=== PATIENT | female | born 1985 | race Caucasian/White ===

== ENCOUNTER 2016-08-24 17:09 | Emergency (ER) | payer OTHER ==
[~2016-08-24] VITALS: Wt 105.0 kg
--- NOTE | 2016-08-24 17:44 | ERD ---
ER Documentation Chief Complaint Date/Time DATE: 08/24/16 TIME: 17:30 Chief Complaint intermittent r. flank pain x8 mo HPI 31-year-old female who presents to the emergency department for right flank pain that is on and off for about 8 months. Her pain was described as sharp and nonradiating that is worse in movement. Took [id number] Advil yesterday and felt better. Denies headache, loss of consciousness, dizziness, blurry vision, changes in vision, photophobia, facial pain, ear pain, throat pain, difficulty swallowing, neck pain, shoulder pain, chest pain, cough, hemoptysis, abdominal pain, loss of appetite, nausea, vomiting, hematochezia, diarrhea, constipation, urinary symptoms, , the possibility of being , bladder and bowel incontinences, extremity weakness, extremity tenderness, numbness or tingling sensation, difficulty walking, recent travel, recent exposure to illness, recent antibiotic use in the last 3 months, fever, chills. Allergy: No known drug allergies. PMH: Denies. Family medical history: Denies family history of cardiac before the age of 50, cardiac disease, hypertension, stroke. AO LMP: "5 days ago." Medications: Mavy-ter-znpkcpy Advil. Surgery: 2. Tubal ligation. Primary Social History: Not working at this time. Denies smoking, use of alcohol, use of illegal drugs. Not exposed to secondhand smoking. ROS All systems reviewed and are negative except as per history of present illness. Allergies Allergies: Coded Allergies: No Known Allergies (Verified Allergy, Unknown, 08/24/16) PMhx/Soc Medical and Surgical Hx: pt denies Medical Hx, pt denies Surgical Hx Hx Alcohol Use: No Hx Substance Use: No Hx Tobacco Use: No Smoking Status: Never smoker Physical Exam Vitals Vital Signs Date Time Temp Pulse Resp B/P Pulse Ox O2 Delivery O2 Flow Rate FiO2 08/24/16 17:11 98.2 76 20 119/58 99 Physical Exam CONSTITUTIONAL: Well-appearing; well-nourished; in no apparent distress. HEAD: Normocephalic; atraumatic. EYES: Conjunctiva clear, sclera non-icteric, EOM intact. PERRL Ears: Hearing intact. EACs clear, TMs non-bulging, non-inflamed, translucent & mobile, ossicles normal appearance, No obstructions, no erythema, no discharges Nose: No obstructions. No polyps. No external lesions. Mucosa non-inflamed. No external lesions, septum and turbinates normal. No rhinorrhea. No discharges. Frontal sinus is non-tender to palpation. Maxillary sinus is non-tender to palpation. MOUTH: Moist mucous membranes, no lesion, no obstructions, no vesicles, no thrush, patent airway Throat: Uvula in midline. Right tonsil is +1 with no erythema, no exudate. Left tonsil is +1 with no erythema, no exudate. Tolerating secretions well. Good gag reflex. Patent airway. Neck: Supple, without lesions, bruits, or adenopathy. No mass. Thyroid non- enlarged and non-tender to palpation. CHEST: Symmetrical chest. Respirations even and not labored. No retractions noted. CARDIOVASCULAR: Normal S1, S2. RRR. No murmurs, gallops. RESPIRATORY: Normal chest excursion with respiration; breath sounds clear and equal bilaterally; no wheezes, rhonchi, or rales. Breathing even and unlabored. Speaking in clear, full, and complete sentences w/ ease. ABDOMEN: Normal bowel sounds normal. Soft, round, non-distended, non-guarding, no tenderness, no rebound, no organomegaly, no masses, no pulsating abdominal mass. No hernia. No peritoneal signs. : No CVA tenderness. BACK: Symmetrical shoulder. Spine is midline without deformity, tenderness. No evidence of trauma or deformity. PELVIS: Stable pelvis. No evidence of trauma or deformity. MUSCULOSKELETAL: Normal gait and station. No misalignment, asymmetry, crepitation, defects, tenderness, masses, effusions, decreased range of motion, instability, atrophy or abnormal strength or tone in the head, neck, spine, ribs , pelvis or extremities except right lower back paraspinal discomfort on range of motion (good and full) with mild tenderness on palpation.. No calf tenderness. NEUROVASCULAR: Distal pulses are present. Pedal pulse are present, equal, and normal. Capillary refills are < 2 seconds. NEUROLOGIC: Alert and oriented x4. Speaks full and clear sentences. Cranial Nerves II-XII normal. Sensation to pain, touch, and proprioception normal. Grossly unremarkable. No neurologic deficits. Romberg test is negative. PSYCHOLOGICAL: The patients mood and manner are appropriate. No hallucinations , delusions. Not SI. Not HI. Has the capacity to decide for self SKIN: Normal for age and ethnicity; warm; dry; good turgor; no apparent lesions or exudates. No rashes, hives, discoloration. Intact. Results 24 hrs Laboratory Tests Test 08/24/16 18:10 Urine Color YELLOW Urine Clarity HAZY Urine pH 6.0 Urine Specific [place] >=1.030 Urine Ketones NEGATIVE Urine Nitrite NEGATIVE Urine Bilirubin NEGATIVE Urine Urobilinogen 0.2 E.U./dL Urine Leukocyte Esterase NEGATIVE Urine Microscopic RBC 2-5/HPF Urine Microscopic WBC 0-2/HPF Urine Squamous Epithelial Cells MANY Urine Bacteria MANY Urine Hemoglobin 1+ Urine Glucose NEGATIVE% Urine Total Protein TRACE Current Medications Medications (Trade) Dose Ordered Sig/Judy Route PRN Reason Start Time Stop Time Status Last Admin Dose Admin Ibuprofen (Motrin) 800 mg ONCE ONCE PO 08/24/16 18:00 08/24/16 18:01 DC 08/24/16 18:02 Procedures/MDM Examination: Please see physical examination. Disease process, medical treatment was explained to the patient and family member. They verbalized understanding and agreed with the diagnostic tests, medical treatment, and follow-up care. POC urine : Negative. Urinalysis: Reviewed. Treatment: Motrin. Re-evaluation: Denies headache, dizziness, blurry vision, neck pain, shoulder pain, chest pain, back pain, abdominal pain. No nausea and vomiting. No episode of emesis here in the emergency department. There is no right upper/ right lower/epigastric/left upper/left lower abdominal tenderness and light and deep palpation. Negative on Rovsing's sign. Negative on Rahul sign. No peritoneal signs. Able to jump 10 times without developing abdominal pain. Good and full range of motion of neck and spine without limitation. No neurovascular deficits. No neurological deficits. Consultation: None. Differential diagnosis: Nephrolithiasis versus sciatica versus urinary tract infection versus musculoskeletal spasms Medical decision makin-year-old female who presents to the emergency department for right flank pain that is on and off for about 8 months. Her pain was described as sharp and nonradiating that is worse in movement. Took [id number] Advil yesterday and felt better. Patient's complaint, patient' s history about her complaint, my physical findings, diagnostic test results, my reevaluation are consistent with my final diagnosis of muscle spasms. Medications prescribed are the following: Motrin. Flexeril. Patient and family member are made aware of the side effects and adverse reactions of the medications prescribed. Instructed on when to seek emergent and medical attention in case allergic/anaphylactic reactions or severe side effects and or adverse reactions to medications. Patient and family member verbalized understanding. Patient instructed to: Instructed to follow-up with his PCP in 24-48 hours. Instructed to Call 911 for chest pain, shortness of breath. Advised to come back here in ED as soon as possible for severity of symptoms which includes but not limited to: any new symptoms; shortness of breath/difficulty of breathing; cardiovascular changes; severe gastrointestinal symptoms; signs and symptoms of bleeding and or infection; signs of compartment syndrome/neurovascular changes; neurological changes/deficits. Patient and family member verbalized understanding. Upon discharge, patient is alert and oriented x 4, speaks full and clear sentences, denies pain, has no neurological deficits, has no neurovascular deficits, difficulty of breathing. Breathing even and unlabored. Lung sounds are clear to auscultation. Not in distress. Appears comfortable. Ambulatory with steady gait. Appears satisfied with care provided here in ED. Departure Diagnosis: Primary Impression: Muscle spasm Additional Impression: Back pain Condition: Stable Additional Instructions: Patient instructed to: Instructed to follow-up with his PCP in 24-48 hours. Instructed to Call 911 for chest pain, shortness of breath. Advised to come back here in ED as soon as possible for severity of symptoms which includes but not limited to: any new symptoms; shortness of breath/difficulty of breathing; cardiovascular changes; severe gastrointestinal symptoms; signs and symptoms of bleeding and or infection; signs of compartment syndrome/neurovascular changes; neurological changes/deficits. Patient and family member verbalized understanding. NATIVIDAD JOLLEY Aug 24, 2016 17:44
[2016-08-24] MEDS ORDERED: IBUPROFEN 800 MG TAB PO ONE (18:00)
[2016-08-24 18:35] LABS: ADD UMIC YES; URINE BILIRUBIN (Dip) NEGATIVE (NEGATIVE); URINE BLOOD (Dip) 1+ (NEGATIVE); URINE COLOR YELLOW (YELLOW); URINE GLUCOSE (Dip) NEGATIVE (NEGATIVE); URINE KETONES (Dip) NEGATIVE (NEGATIVE); URINE LEUKOCYTE ESTERASE (Dip) NEGATIVE (NEGATIVE); URINE NITRITE (Dip) NEGATIVE (NEGATIVE); URINE TOTAL PROTEIN (Dip) TRACE (NEGATIVE); URINE UROBILINOGEN (Dip) 0.2 E.U./dL (0.1-1.0)
[2016-08-24 18:45] LABS: BACTERIA,URINE MANY; SQUAMOUS EPITHELIAL CELL,UR MANY
[2016-08-24] MEDS ORDERED: IBUP800T25 PO (18:57)
[2016-08-24] MEDS ORDERED: CYCL-319 PO (18:58)
== END 2016-08-24 19:03 | disposition home or self-care (01) ==
LOC: FTE 17:09
DX: M62.830 Muscle spasm of back (principal); M54.9 Dorsalgia, unspecified
CPT/HCPCS: 81001; Z7502; Z7610; 99283

== ENCOUNTER 2017-02-17 07:34 | Emergency (ER) | payer OTHER ==
[~2017-02-17] VITALS: Ht 172.7 cm; Wt 105.1 kg
[~2017-02-17 07:34] MED LIST: CYCL-319 PO; IBUP800T25 PO
[2017-02-17 07:36] VITALS: Ht 172.7 cm; Wt 105.1 kg
[2017-02-17 08:24] LABS: ADD UMIC YES; UR ASCORBIC ACID NEGATIVE (NEGATIVE); UR BACTERIA FEW /HPF (NONE SEEN); UR BILIRUBIN (Dip) NEGATIVE (NEGATIVE); UR BLOOD (Dip) 3+ mg/dL (NEGATIVE); UR CLARITY CLEAR (CLEAR); UR COLOR YELLOW (YELLOW); UR GLUCOSE (Dip) NEGATIVE (NEGATIVE); UR KETONES (Dip) NEGATIVE (NEGATIVE); UR LEUKOCYTE ESTERASE (Dip) NEGATIVE Leu/ul (NEGATIVE); UR MUCUS MODERATE /HPF (NONE SEEN); UR NITRITE (Dip) NEGATIVE (NEGATIVE); UR RBC 4 /HPF (0-5); UR SPECIFIC GRAVITY (Dip) 1.027 (1.003-1.030); UR SQUAMOUS EPITHELIAL CELL FEW /HPF (FEW); UR TOTAL PROTEIN (Dip) NEGATIVE (NEGATIVE); UR UROBILINOGEN (Dip) NEGATIVE (NEGATIVE)
--- NOTE | 2017-02-17 08:45 | RADRPT ---
PROCEDURE: US Pelvis CLINICAL INDICATION: Pelvic pain. TECHNIQUE: Sonographic evaluation of the pelvis was performed utilizing both transabdominal and tr ansvaginal technique. Curved array transabdominal transducer technique as well as a high frequency endovaginal probe was utilized. Images were reviewed on the high-resolution PACS workstation. COMPARISON: No prior studies are available for comparison. FINDINGS: The uterus is normal in size, echogenicity, and morphology measuring 6.9 x 4.4 x 5.0 cm in dimension . The uterus is anteverted in normal position. The endometrium is thin and homogeneous measuring 3.5 mm in diameter. There is trace fluid in the endometrial canal. The right ovary measures 2.8 x 2.1 x 2.0 cm in dimension. The left ovary measures 3.1 x 1.9 x 2.4 c m in dimension. The ovaries are symmetric in size, echogenicity, and morphology. Normal Doppler fl ow is demonstrated to both ovaries. There are no adnexal masses. There is no significant free flui d in the pelvis. IMPRESSION: Trace free fluid in the endometrial canal. Otherwise, unremarkable pelvic ultrasound. RPTAT: HH .Hoda Steve MD, MD Date Time Electronically viewed and signed by .Hoda Steve MD, on 02/17/2017 08:45 .G/
[2017-02-17 09:26] LABS: BASOPHILS % 0.4 % (0.0-2.0); EOSINOPHILS % 0.4 % (0.0-7.0); HEMATOCRIT 39.1 % (37.0-47.0); HEMOGLOBIN 12.9 g/dl (12.0-16.0); LYMPHOCYTES # 1.8 10^3/ul (0.8-2.9); LYMPHOCYTES % 17.3 % (15.0-51.0); MEAN CORPUSCULAR HEMOGLOBIN 26.3 pg (29.0-33.0); MEAN CORPUSCULAR VOLUME 79.8 fl (82.0-101.0); MEAN PLATELET VOLUME 11.2 fl (7.4-10.4); MONOCYTE # 0.5 10^3/ul (0.3-0.9); MONOCYTES % 4.4 % (0.0-11.0); NEUTROPHIL # 7.9 10^3/ul (1.6-7.5); PLATELET COUNT 256 10^3/UL (140-415); RED CELL DISTRIBUTION WIDTH 13.2 % (11.5-14.5); WHITE BLOOD COUNT 10.2 10^3/ul (4.8-10.8)
[2017-02-17 09:43] LABS: ALBUMIN/GLOBULIN RATIO 0.97; BILIRUBIN,INDIRECT 0.3 mg/dl (0-1.1); BILIRUBIN,TOTAL 0.3 mg/dl (0.2-1.3); CALCIUM 9.4 mg/dl (8.4-10.2); CREATININE 0.65 mg/dl (0.44-1.00); POTASSIUM 4.2 mmol/L (3.5-5.1); TOTAL PROTEIN 8.1 g/dl (6.1-8.1)
--- NOTE | 2017-02-17 10:21 | RADRPT ---
PROCEDURE: CT abdomen and pelvis CLINICAL INDICATION: Abdomen pain TECHNIQUE: Abdomen and pelvis CT was performed on a multidetector high-resolution CT scanner withou t the use of IV contrast. Coronal and sagittal reformatted images were obtained from the axial sour ce images. The exam CTDI by series is 20.68 mGy, and the total exam DLP equals 1296.58 mGy-cm. DIC OM images are available. One or more of the following dose reduction techniques were used: Automated exposure control. Adjustment of the mA and/or kV according to patient size. Use of iterative reconstruction technique. COMPARISON: Pelvic ultrasound 02/17/2017 FINDINGS: CT abdomen: Mild - moderate left hemidiaphragm elevation of uncertain etiology and chronicity. Small amount of l eft pleural thickening versus fluid in the lower lung zone. Left lower lobe and lingula subsegmental atelectasis versus scar. Liver parenchyma patchy heterogeneity is not optimally assessed but may be secondary to patchy fatty liver. Left liver lobe peripheral small slightly lower attenuation area bridging the falciform liga ment is nonspecific but may represent an area of more focal fat. Mild splenomegaly. Few small soft tissue findings near the spleen probably are splenules. The gallbladder and adrenal glands are unremarkable on this unenhanced study. Pancreas uncinate process too small to characterize slightly low attenuation area is not optimally a ssessed but could be artifactual; the unenhanced images of the pancreas are otherwise unremarkable. 2 mm in diameter left kidney upper pole central nonobstructing stone. No right kidney stone or urete ral stone seen. The kidneys are otherwise unremarkable on this unenhanced study. No ascites, hydronephrosis, or enlarged lymph nodes detected. The stomach is not optimally distended and thus not optimally evaluated. No abnormally dilated bowel loops detected. CT pelvis: The bladder is not optimally distended and thus not optimally assessed. 6 mm in diameter slightly l ow attenuation finding is inseparable from the urachal remnant (near its insertion into the bladder) . No enlarged lymph nodes seen otherwise. Physiologic amount of free pelvic fluid. The uterus is retro flexed. Bilateral adnexal too small to characterize low attenuation findings probably correspond to the ovarian follicles seen on the pelvic sonogram from earlier today. Right common iliac artery athe rosclerotic tiny mural calcification. T7 vertebral body mild anterior wedge deformities of uncertain etiology and chronicity. IMPRESSION: 1. Left kidney tiny central nonobstructing stone. Subcentimeter slightly low attenuation finding in separable from the urachal remnant may be a urachal abnormality versus too small to characterize abn ormality adjacent to the urachus. 2. Mild splenomegaly. Heterogeneous liver parenchyma most likely represents patchy fatty liver. Pa ncreas uncinate process too small to characterize slightly low attenuation area is not optimally ass essed but could be artifactual. 3. Mild - moderate left hemidiaphragm elevation of uncertain etiology and chronicity. Small amount of left pleural thickening versus fluid in the lower lung zone. A follow-up contrast enhanced abdomen CT or MR scan would be useful if older corresponding studies a re unavailable. RPTAT: TT Atiya Arreola Physician Date Time Electronically viewed and signed by Atiya Arreola Physician on 02/17/2017 10:20 JS/
--- NOTE | 2017-02-17 11:01 | RADRPT ---
PROCEDURE: Chest x-ray CLINICAL INDICATION: Abdominal pain TECHNIQUE: Chest single view COMPARISON: None FINDINGS: The heart is normal in size. The pulmonary vessels are normal in caliber. The lungs are clear. The re is elevation left hemidiaphragm. The costophrenic angles are sharp. The visualized bony thorax i s unremarkable. IMPRESSION: No acute cardiopulmonary disease. No free air under the diaphragms RPTAT: HH .Vincent Pulido MD, MD Date Time Electronically viewed and signed by .Vincent Pulido MD, on 02/17/2017 11:01 .W/
[2017-02-17] MEDS ORDERED: IBUP400T22 PO (11:14)
--- NOTE | 2017-02-18 13:52 | ERD ---
ER Documentation Chief Complaint Chief Complaint RLQ PAIN STARTED THIS AM NAUSEA HPI Is a 31-year-old female presenting to the emergency department complaining of right-sided pelvic pain since this morning. Patient admits to having nausea. She denies any vomiting, diarrhea. Denies any fevers. Denies any dysuria, hematuria ROS All systems reviewed and are negative except as per history of present illness. Medications Home Meds Active Scripts Ibuprofen* (Ibuprofen*) 400 Mg Tablet, 400 MG PO Q6H Y for PAIN, #30 TAB Prov:KAILEE POSADAS PA-C 02/17/17 Cyclobenzaprine Hcl* (Cyclobenzaprine Hcl*) 10 Mg Tablet, 10 MG PO Q12 Y for muscle spasms, #20 TAB Prov:NATIVIDAD JOLLEY F 08/24/16 Ibuprofen* (Motrin*) 800 Mg Tab, 800 MG PO Q6H Y for PAIN AND OR ELEVATED TEMP, #30 TAB Prov:PASILABAN,KLAR F 08/24/16 Allergies Allergies: Coded Allergies: No Known Allergies (Verified Allergy, Unknown, 02/17/17) PMhx/Soc Medical and Surgical Hx: pt denies Medical Hx, pt denies Surgical Hx History of Surgery: No Anesthesia Reaction: No Hx Neurological Disorder: No Hx Respiratory Disorders: No Hx Cardiac Disorders: No Hx Psychiatric Problems: No Hx Miscellaneous Medical Probl: No Hx Alcohol Use: No Hx Substance Use: No Hx Tobacco Use: No Smoking Status: Never smoker Physical Exam Vitals Vital Signs Date Time Temp Pulse Resp B/P Pulse Ox O2 Delivery O2 Flow Rate FiO2 02/17/17 07:36 97.9 70 18 129/63 99 Physical Exam GENERAL: well-developed/well-nourished, in no apparent distress, non-toxic appearing HENT: NC/AT, moist mucous membranes EYES: Conjunctiva normal NECK: Supple, no lymphadenopathy PULM: CTA bilaterally, no rales, rhonchi, or wheezing heard CV: Normal S1S2, RRR, good capillary refill GI: Soft, non-distended, tender to palpation Normal bowel sounds, no masses or organomegaly felt on exam No gross peritonitis, no bruits Negative Rovsing, negative Sebastian, negative McBurney's point, Negative CVAT BACK: No masses EXT: No clubbing, cyanosis, or edema NEURO: Alert and Orientated SKIN: Intact, normal turgor PSYCH: Normal mood and mentation Result Diagram: 02/17/17 0910 02/17/17 0910 Results 24 hrs Laboratory Tests Test 02/17/17 08:00 02/17/17 09:10 Urine Color YELLOW Urine Clarity CLEAR Urine pH 5.0 Urine Specific [place] 1.027 Urine Ketones NEGATIVEmg/dL Urine Nitrite NEGATIVEmg/dL Urine Bilirubin NEGATIVEmg/dL Urine Urobilinogen NEGATIVEmg/dL Urine Leukocyte Esterase NEGATIVELeu/ul Urine Microscopic RBC 4/HPF Urine Microscopic WBC 5/HPF Urine Squamous Epithelial Cells FEW/HPF Urine Bacteria FEW/HPF Urine Mucus MODERATE/HPF Urine Hemoglobin 3+mg/dL Urine Glucose NEGATIVEmg/dL Urine Total Protein NEGATIVEmg/dl White Blood Count 10.210^3/ul Red Blood Count 4.9010^6/ul Hemoglobin 12.9g/dl Hematocrit 39.1% Mean Corpuscular Volume 79.8fl Mean Corpuscular Hemoglobin 26.3pg Mean Corpuscular Hemoglobin Concent 33.0g/dl Red Cell Distribution Width 13.2% Platelet Count 42905^3/UL Mean Platelet Volume 11.2fl Neutrophils % 77.0% Lymphocytes % 17.3% Monocytes % 4.4% Eosinophils % 0.4% Basophils % 0.4% Nucleated Red Blood Cells % 0.0/100WBC Neutrophils # 7.910^3/ul Lymphocytes # 1.810^3/ul Monocytes # 0.510^3/ul Eosinophils # 0.010^3/ul Basophils # 0.010^3/ul Nucleated Red Blood Cells # 0.010^3/ul Sodium Level 143mmol/L Potassium Level 4.2mmol/L Chloride Level 105mmol/L Carbon Dioxide Level 28mmol/L Anion Gap 14 Blood Urea Nitrogen 10mg/dl Creatinine 0.65mg/dl Glucose Level 116mg/dl Calcium Level 9.4mg/dl Total Bilirubin 0.3mg/dl Direct Bilirubin 0.00mg/dl Indirect Bilirubin 0.3mg/dl Aspartate Amino Transf (AST/SGOT) 21IU/L Alanine Aminotransferase (ALT/SGPT) 34IU/L Alkaline Phosphatase 90IU/L Total Protein 8.1g/dl Albumin 4.0g/dl Globulin 4.10g/dl Albumin/Globulin Ratio 0.97 Lipase 51U/L Procedures/MDM 31-year-old female presents to the emergency department complaining of right- sided pelvic pain, there was no evidence of ovarian torsion, ruptured ovarian cyst, appendicitis, diverticulitis. In the ED, I have given her 1 L of fluids and pain medication. An ultrasound of the pelvic region was done did not show any evidence of any acute pathology. I have discussed this with the patient, I discussed the risks of a CT scan however patient continued to wanting a CT scan. There was no evidence of an acute pathology, I have discussed diagnostic testing with patient. Patient is stable to be discharged home to follow-up with her primary care physician. CXR No acute cardiopulmonary disease. No free air under the diaphragms Pelvic US Trace free fluid in the endometrial canal. Otherwise, unremarkable pelvic ultrasound. CT abd and pelvis without contrast 1. Left kidney tiny central nonobstructing stone. Subcentimeter slightly low attenuation finding inseparable from the urachal remnant may be a urachal abnormality versus too small to characterize abnormality adjacent to the urachus. 2. Mild splenomegaly. Heterogeneous liver parenchyma most likely represents patchy fatty liver. Pancreas uncinate process too small to characterize slightly low attenuation area is not optimally assessed but could be artifactual. 3. Mild - moderate left hemidiaphragm elevation of uncertain etiology and chronicity. Small amount of left pleural thickening versus fluid in the lower lung zone. A follow-up contrast enhanced abdomen CT or MR scan would be useful if older corresponding studies are unavailable. Departure Diagnosis: Primary Impression: Pelvic pain Condition: Stable Patient Instructions: Abdominal Pain, Unknown Cause, (Female) Additional Instructions: FOLLOW UP WITH YOUR PRIMARY CARE PHYSICIAN TOMORROW.Return to this facility if you are not improving as expected. Take all medicines as directed. Return to this facility if you are not improving as expected. KAILEE POSADAS PA-C Feb 18, 2017 13:52
== END 2017-02-17 11:48 | disposition home or self-care (01) ==
LOC: FTE 07:34
DX: R10.2 Pelvic and perineal pain (principal)
CPT/HCPCS: 36415; 71010; 74176; 76830; 76856; 80053; 81001; 83690; 85025; Z7502